=== PATIENT | male | born 1970 | race Caucasian/White ===

== ENCOUNTER → 2021-03-25 09:34 | Outpatient (CLI) | payer BC, SELFPAY ==
[2021-03-26 10:47] LABS: Covid-19 Nasal PCR Sendout Lex POSITIVE
== END ==
PROVIDERS: Visit Provider Nurse Practitioner
DX: U07.1 COVID-19 (principal)
CPT/HCPCS: C9803; U0004; U0005

== ENCOUNTER → 2022-02-12 12:33 | Outpatient (CLI) | payer BC, SELFPAY ==
--- NOTE | 2022-02-12 12:39 | XR_ITS ---
FINAL REPORT CLINICAL HISTORY: NECK PAIN FINDINGS: CERVICAL SPINE Five views were obtained. There is no acute fracture. There is no malalignment. There is kyphosis centered at C5-6. There are mild to moderate degenerative changes with osteophytes in the mid and lower cervical spine. There is mild bilateral C5-6 neural foraminal narrowing. There is no soft tissue abnormality. IMPRESSION: [id number] degenerative change with mild bilateral C5-6 neural foraminal narrowing. Kyphosis centered at C5-6. Reviewed, Interpreted and Dictated by Alfred Ta III, MD Transcribed by Sandra Owens Authenticated and [facility]
--- NOTE | 2022-02-12 12:40 | XR_ITS ---
FINAL REPORT CLINICAL HISTORY: CRISTOPHER EAR PAIN FINDINGS: SINUSES 3 views were obtained. There is no significant mucosal thickening. There are no fluid levels identified. There is no acute fracture. IMPRESSION: No acute process. Reviewed, Interpreted and Dictated by Alfred Ta III, MD Transcribed by Sekou Wilks Authenticated and [facility]
== END ==
PROVIDERS: PCP Family Medicine; Visit Provider Family Medicine
DX: M54.2 Cervicalgia (principal); H92.02 Otalgia, left ear; H92.01 Otalgia, right ear
CPT/HCPCS: 70220; 72050

== ENCOUNTER → 2022-03-26 14:55 | Outpatient (CLI) | payer BC, SELFPAY ==
--- NOTE | 2022-03-26 14:58 | MR_ITS ---
FINAL REPORT TECHNIQUE: Multiplanar MR without gadolinium enhancement CLINICAL HISTORY: CERVICAL RADICULPATHY neck popped with every movement 4-5 months ago about 2 months ago pt was streching at work and when going back to normal position he got numbness down arms, neck is stiff and it goes into head FINDINGS: Limited images of the posterior fossa are unremarkable. There is moderate spondylosis. There is reversal of the normal cervical lordosis. Alignment is otherwise normal. Cervical spinal cord shows normal signal and contour. C2-3: Unremarkable. C3-4: Mild annular disc bulge. C4-5: Mild annular disc bulge with mild spondylosis and mild bilateral neural foraminal narrowing. C5-6: Moderate spondylosis with moderate annular disc bulge. There is mild central canal stenosis with flattening of the cervical spinal cord. There is moderate bilateral neural foraminal narrowing. C6-7: Mild to moderate annular disc bulge with moderate right neural foraminal narrowing. C7-T1: Minimal annular disc bulge. IMPRESSION: Degenerative changes with canal stenosis most pronounced at C5-6. Reviewed, Interpreted and Dictated by Kelsy Rodriguez MD Transcribed by Rola Samuel Authenticated and [facility]
== END ==
PROVIDERS: PCP Family Medicine; Visit Provider Nurse Practitioner
DX: M54.12 Radiculopathy, cervical region (principal)
CPT/HCPCS: 72141; 76376

== ENCOUNTER 2023-02-03 11:16 | Emergency (ER) | payer BC, SELFPAY ==
[2023-02-03] VITALS (8 sets, daily range): BP systolic 124–164; BP diastolic 74–109; PULSE 61–73; RESP 18; TEMP 36.6; O2SAT 96–99; BMI 33.2
--- NOTE | 2023-02-03 11:26 | PC.NURSE ---
DR FIGUEROA AT BEDSIDE
--- NOTE | 2023-02-03 11:30 | CT_ITS ---
FINAL REPORT TECHNIQUE: After the administration of intravenous contrast, axial images were obtained through the abdomen and pelvis by computed tomography. The study was performed with techniques to keep radiation dose as low as reasonably achievable, (ALARA). Individual dose reduction techniques using automated exposure control or adjustment of mA and/or kV according to the patient's size were employed. CLINICAL HISTORY: ruq pain, jaundice FINDINGS: Abdomen: The lung bases are clear. There is mild fatty infiltration of the liver. The gallbladder is present. There are calcified granulomas of the spleen. The pancreas appears unremarkable. There is a nodule in the right adrenal gland measuring 1.5 cm, indeterminate. The kidneys are unremarkable. The aorta is normal in caliber. There is no free fluid or adenopathy. Pelvis: The appendix appears unremarkable. The urinary bladder is incompletely distended.. There is no free fluid or adenopathy. IMPRESSION: Indeterminate right adrenal nodule. Recommend adrenal mass protocol CT or follow-up CT in 6 months. Reviewed, Interpreted and Dictated by Dev Garces MD Transcribed by Linette Bass Authenticated and [facility]
--- NOTE | 2023-02-03 11:31 | HMH.EDGENADL ---
Discharge Plan Disposition Patient Disposition: Xfer Short-Term Hosp Chief Complaint: Abdominal Pain Prescriptions Prescriptions: No Action lisinopril-hydrochlorothiazide 10-12.5 mg tablet 1 tab PO 30 Days omeprazole 20 mg capsule,delayed release(DR/EC) 20 mg PO 30 Days Referrals Follow up/Referrals: Vickie Hua APRN [Primary Care Provider] - See instructions Activity Restrictions/Add. Instructions Additional Instructions/Restrictions: Please present immediately to [facility] for admission for continued evaluation. Clinical Impressions Clinical Impression: Direct hyperbilirubinemia, Abdominal pain, Bile duct obstruction Stand Alone Forms Stand Alone Forms: Transfer Record - ED Instructions Patient Instructions: DI for Acute Abdominal Pain Discharge ED Provider: Manpreet Lombardi General Adult HPI General Chief complaint: Abdominal Pain Stated complaint: upper right stomach pain Time Seen by Provider: 02/03/23 11:24 Mode of Arrival: Ambulatory Limitations: No Limitations Description of Symptoms (Recalled from ER Triage Doc. by RN): PT REPORTS RIGHT SIDED ABDOMINAL DISCOMFORT AFTER EATING A LARGE MEAL THURSDAY NIGHT. NAUSEA AND DIARRHEA History of Present Illness HPI narrative: Patient is a 52-year-old male with past medical history of hypertension who presents emergency department for evaluation of right-sided abdominal discomfort. Onset was acute, occurring since Thursday night, there is associated nausea and nonbloody diarrhea. No vomiting. Right upper quadrant discomfort persisted so he presented here for continued evaluation. Over the course his urine has turned dark without associated dysuria. No other acute complaints at this time. No history of abdominal surgeries. Related Data Home Medications Medication Instructions Recorded Confirmed lisinopril 10 1 tab PO 30 days 04/22/18 04/22/18 mg-hydrochlorothiazide 12.5 mg tablet omeprazole 20 mg capsule,delayed 20 mg PO 30 days 04/22/18 04/22/18 release Allergies Allergy/AdvReac Type Severity Reaction Status Date / Time No Known Drug Allergies Allergy Unknown Verified 04/22/18 10:54 [NKDA] [facility] Disclaimer: The information contained in this section may have been updated after the patient was seen, as this information can be updated by other users. Social History Smoking Status: Never smoker alcohol intake: current current occupational status: employed Travel in the last 8 weeks: None household members: family housing: house ROS Obtained: Yes Systems reviewed as appropriate & no additional complaints except as documented Physical Exam General General appearance: alert and in no apparent distress Head Head exam: atraumatic and normocephalic Eye Eye exam: Present PERRL, EOMI and scleral icterus ENT ENT exam: Present mucous membranes moist Neck Neck exam: Present normal inspection Chest Chest inspection: Present normal inspection and symmetric chest wall rise Respiratory Respiratory exam: Present normal lung sounds bilaterally; Absent respiratory distress Cardiovascular Cardiovascular exam: Present regular rate and normal rhythm Abdominal Exam Abdominal exam: Present soft and tenderness (Mild, right upper quadrant); Absent rebound or rigidity Extremities Exam Extremities exam: Present normal inspection Neurological Exam Neurological exam: Present alert Psychiatric Psychiatric exam: Present normal affect Skin Skin exam: Present warm and dry Medical Decision Making Rufino Inquiry Pt receiving controlled substance: No Vital Signs: 02/03/23 11:20 02/03/23 12:30 02/03/23 13:31 Temperature 97.8 F Temperature Source Oral Pulse Rate 67 68 Pulse Rate [Radial] 72 Respiratory Rate 18 Blood Pressure 124/89 164/91 H Blood Pressure [Right Arm] 158/98 H Blood Pressure Mean Blood Pressure Mean [Right Arm] 118 Blood Pressure Source [Right Arm] Automatic
[2023-02-03 11:36] LABS: Microscopic, Urine URINE MICROSCOPIC (MICROSCOPIC)
[2023-02-03 11:37] LABS: Basophils % 0.3 % (0.1-2.0); Eosinophils # 0.2 K/mm3 (0.0-0.4); Eosinophils % 1.7 % (0.1-12.0); Hematocrit 48.1 % (42.0-52.0); Hemoglobin 17.2 g/dL (14.1-18.0); Lymphocytes # 0.9 K/mm3 (0.7-4.5); Lymphocytes % 10.4 % (10-50); Mean Corpuscular HGB Conc 35.8 g/dL (31.8-35.4); Mean Corpuscular Volume 92.1 fl (80-94); Mean Platelet Volume 6.9 fl (7.4-10.4); Monocytes # 0.4 K/mm3 (0.1-1.0); Neutrophils # 7.2 K/mm3 (1.8-7.8); Neutrophils % 83.6 % (37.0-80.0); Platelet Count 307 K/mm3 (142-424); Red Blood Count 5.23 M/mm3 (4.60-6.20); Red Cell Distribution Width 13.3 % (11.5-17.5); White Blood Count 8.6 K/mm3 (4.8-10.8)
[2023-02-03 11:38] LABS: Appearance,Urine CLEAR (Clear); Blood, Urine TRACE-I (Negative); Color,Urine YELLOW (Yellow); Glucose,Urine (UA) Negative (Negative); Ketones,Urine Negative (Negative); Leukocyte Esterase,Urine Negative (Negative); Nitrate,Urine Negative (Negative); PH,Urine 6.5 (5.0-8.5); Protein,Urine Negative (Negative); Specific Gravity, Urine <= 1.005 (1.005-1.030); Urobilinogen,Urine 0.2 EU/dl (0.2)
[2023-02-03 11:42] LABS: Alanine Aminotransferase 630 U/L (12-78); Albumin Level 4.7 g/dl (3.5-5.0); Albumin/Globulin Ratio 1.2 (1.1-1.8); Alkaline Phosphatase 233 U/L (38-126); Anion Gap 12.4 mEq/L (5-15); Aspartate Amino Transferase 305 U/L (17-59); Bilirubin,Direct 6.2 mg/dl (0.0-0.4); Bilirubin,Total 9.1 mg/dl (0.2-1.3); Blood Urea Nitrogen 14 mg/dl (9-20); Calcium 9.2 mg/dl (8.4-10.2); Carbon Dioxide 30 mmol/L (22.0-30.0); Chloride 95 mmol/L (98-107); Creatinine Clearance Estimated 109 mL/min (50-200); Estimated Glomerular Filt Rate 63 ml/min (>60); GFR (African American) 77 ML/MIN (>60); Globulin 3.8 g/dL (1.3-3.2); Glucose 124 mg/dl (74-100); Lipase 124 U/L (23-300); Potassium 3.4 mmoL/L (3.5-5.1); Sodium 134 mmol/L (136-145); Total Protein,Serum 8.5 g/dl (6.3-8.2)
[2023-02-03 11:44] LABS: Bilirubin,Urine 2+ (Negative)
--- NOTE | 2023-02-03 11:45 | ECG_ITS ---
APPROVED REPORT Exam: Resting ECG HR:69 bpm ECG Measurements Heart Rate 69 AXES OK 184 P 31 QRSd 117 QRS 246 QT 399 T 49 QTc 418 Conclusion SINUS RHYTHM INCOMPLETE RIGHT BUNDLE BRANCH BLOCK [90+ ms QRS DURATION, TERMINAL R IN V1/V2, 40+ ms S IN I/aVL/V4/V5/V6] RIGHT VENTRICULAR HYPERTROPHY [SOME/ALL OF: PROMINENT R IN V1, LATE TRANSITION, RAD, ASHLEY, SSS] ANTEROSEPTAL MYOCARDIAL INFARCTION , OF INDETERMINATE AGE [40+ ms Q WAVE IN V1-V4] ABNORMAL ECG UNCONFIRMED REPORT Electronically signed by : Kofi Rucker MD 02/04/2023 18:40:49
--- NOTE | 2023-02-03 11:47 | PC.NURSE ---
pt resting in bed no needs at this time call light at bs
[2023-02-03 11:49] LABS: Bacteria,Urine Trace /lpf; RBC,Urine Occasional #/hpf (0-3); Squamous Epithelial Cell,Urine Occasional #/hpf (0-5)
--- NOTE | 2023-02-03 11:55 | PC.NURSE ---
PT TO CT
--- NOTE | 2023-02-03 12:05 | PC.NURSE ---
pt to ct
--- NOTE | 2023-02-03 12:05 | PC.NURSE ---
PT RETURNED FROM CT
--- NOTE | 2023-02-03 13:48 | PC.NURSE ---
DR FIGUEROA AT BEDSIDE TO UPDATE PT AND FAMILY
--- NOTE | 2023-02-03 14:23 | PC.NURSE ---
calling [facility] for possible transfer
--- NOTE | 2023-02-03 14:31 | PC.NURSE ---
PT AND FAMILY UPDATED ON POC AT THIS TIME
--- NOTE | 2023-02-03 14:34 | PC.NURSE ---
Calling [facility] at this time for possible transfer
--- NOTE | 2023-02-03 14:50 | PC.NURSE ---
Faxsheet faxed to [facility] for acceptance
--- NOTE | 2023-02-03 15:37 | PC.NURSE ---
Addendum entered by Tammie Marcelo RN 02/03/23 15:40: PT TO [facility], NOT [facility] Original Note: REPORT CALLED TO GALINDO BRADSHAW ON 2G AT [facility]
== END 2023-02-03 15:51 | disposition short-term general hospital (02) ==
PROVIDERS: Emergency Provider Emergency Medicine; PCP Nurse Practitioner
DX: K83.1 Obstruction of bile duct (principal); E80.6 Other disorders of bilirubin metabolism; R10.11 Right upper quadrant pain; R11.0 Nausea; R19.7 Diarrhea, unspecified; I45.19 Other right bundle-branch block
CPT/HCPCS: 74177; 80053; 81001; 82248; 83690; 85025; 93005; 96374; 96375; 99285; J0131; J2405; J2543; Q9967

== ENCOUNTER 2024-09-26 14:06 | Outpatient (CLI) | payer BC, SELFPAY ==
--- OUTSIDE RECORDS SUMMARY | 2024-09-26 14:22 | XMS_ITS | Clinical Summary ---
[facility] Address [address] [place] [address] Care Team Providers Care Shear Setter Name Role Phone Dory Hua APRN Primary Care Provider [phone] Allergies No known active allergies Medications pantoprazole (PROTONIX) 40 MG EC tablet Take 1 tablet by mouth Daily. Active losartan-hydroch lorothiazide (HYZAAR) 100-25 MG per tablet Take 1 tablet by mouth Daily. Active dicyclomine (BENTYL) 20 MG tablet Take 1 tablet by mouth Every 6 (Six) Hours. Active Active Problems Problem Noted Date Diagnosed Date Hypertension 02/03/2023 Resolved Problems Problem Noted Date Diagnosed Date Resolved Date Elevated LFTs 02/03/2023 02/07/2023 Choledocholithiasis 02/03/2023 02/08/20 Family History Medical History Relation Name Comments Heart disease Father Cancer Mother Relation Name Status Comments Father Mother Social History Tobacco Use Types Packs/Day Years Used Date Smoking Tobacco: Never Passive Smoke Exposure: Never Smokeless Tobacco: Never Alcohol Use Standard Drinks/Week Comments Yes 0 (1 standard drink = 0.6 oz pur e alcohol) twice a year AUDIT-C Answer Date Recorded Q1: How often do you have a drink containing alcohol? Never 02/03/2023 Q2: How many drinks containi ng alcohol do you have on a typical day when you are drinking? Patient does not drink Q3: How often do you have si x or more drinks on one occasion? Never 02/03/2023 Abuse Screen Answer Date Recorded Feels Unsafe at Home or Work/School no 02/03/2023 Feels Threatened by Someone no 01/16 Does Anyone Try to Keep You From Having Contact with Others or Doing Things Outside Your Home? no 02/03/2023 Physical Signs of Abuse Present no 02/03/2023 Housing Stability Answer Date Recorded Current Living Arrangements home 01/16 Potentially Unsafe Housing Conditions Not on zuly e 02/03/2023 Family and Community Support Answer Paul e Recorded Help with Day-to-Day Activities Not on file 02/03/2023 Lonely or Isolated Not on file 02/03/2023 Employment Answer Date Recorded Do you want help finding or keeping work or a renea b? Not on file 02/03/2023 Disabilities Answer Date Recorded Difficulty Concentrating, Remembering or Making Decisions no 02/03/2023 Difficulty Managing Errands Independently no 02/03/2023 Education Answer Date Recorded Help with school or training? Not on file Preferred Language Portuguese 02/04/2023 Sex and Gender Information Value Date Recorded Sex Assigned at Not on file Legal Sex Male 3:10 PM EST Gender Identity Not on file Sexual Orientation Not on file Last Filed Vital Signs Vital Sign Reading Time Taken Comments Blood Pressure 146/90 02/07/2023 11:19 AM EST Pulse 87 02/07/2023 12:00 PM EST Temperature 37 C (98.6 F) 02/07/2023 11:19 AM EST Respiratory Rate 18 02/07/2023 11:19 AM EST Oxygen Saturation 96% 02/07/2023 7:32 AM EST Inhaled Oxygen Concentration - - Weight 108 kg (238 lb 1.6 oz) 02/06/2023 2:38 PM EST Height 180.3 cm (5' 10.98 ) 02/06/2023 2:[address] Body Mass Index 33.22 02/06/2023 2:38 PM EST Plan of Treatment Health Maintenance Due Date Last Done Comments ANNUAL PHYSICAL 1970 HEPATITIS C SCREENING 1969 TDAP/TD VACCINES (1 - Tdap) 1988 COLOGUARD 2014 COLON CANCER SCREENING 5 YEAR SIGMOIDOSCOPY 2014 COLONOSCOPY [address] CANCER SCREENING [address] CT COLONOGRAPHY 2014 FECAL OCCULT BLOOD TEST 2014 FIT Testing (1 year) 2014 Pneumococcal Vaccine 50+ (1 of 1 - PCV) 07/24/2019 ZOSTER VACCINE (1 of 2) 07/24/2019 COVID-19 Vaccine (2 - season) 2023 INFLUENZA VACCINE 11/16/2024 Medical Devices Implanted Type Area Medical Technical Writer Device Identifier Shelf Expiration Date Model / Serial / Lot Clipapplr M/ Endo Ligaclip Rot 10mm /Tanner - [id number] Implanted:Qty : 1 on 02/06/2023 by Luis Easton MD at [facility] Implant N/A: Abdomen [employer] J [id number] 12/17/2027 [id number] / / [id number] Insurance Advance Directives * CPR (Attempt to Resuscitate) (Latest Code Status on File) Date Activated Date Inactivated Comments 02/03/2023 8:01 PM 02/07/2023 3:13 PM Question Answer Comments Code Status (Patient has no pulse and is not breathing): CPR (Attempt to Resuscitate) Medical Interventions (Patie nt has pulse or is breathing): Full Support Level Of Support Discussed With: Patient Care Teams Shear Setter Relationship Specialty Start Date End Date Dory Hua APRN PCP - General Emergency Medicine 02/03/23
[2024-09-26 15:03] LABS: Hematocrit 46.1 % (42.0-52.0); Hemoglobin 16.0 g/dL (14.1-18.0); Immature Granulocytes % 0.5 %; Mean Corpuscular HGB Conc 34.7 g/dL (31.8-35.4); Mean Corpuscular Hemoglobin 31.4 pg (27.0-31.2); Mean Corpuscular Volume 90.4 fl (80-94); Nucleated Red Blood Cells % 0 %; Platelet Count 278 K/mm3 (142-424); Red Blood Count 5.10 M/mm3 (4.60-6.20); Red Cell Distribution Width-SD 41.0 fL; White Blood Count 8.0 K/mm3 (4.8-10.8)
[2024-09-26 15:41] LABS: Alanine Aminotransferase 57 U/L (12-78); Albumin Level 4.6 g/dl (3.5-5.0); Alkaline Phosphatase 93 U/L (38-126); Anion Gap 11.8 mEq/L (5-15); Aspartate Amino Transferase 43 U/L (17-59); Bilirubin,Direct 0.1 mg/dl (0.0-0.4); Bilirubin,Indirect 1.1 mg/dL (0.0-0.9); Bilirubin,Total 1.2 mg/dl (0.2-1.3); Bilirubin,Unconjugated 1.0 mg/dL (0.0-1.1); Blood Urea Nitrogen 16 mg/dl (9-20); Calcium 9.9 mg/dl (8.4-10.2); Carbon Dioxide 31 mmol/L (22.0-30.0); Chloride 101 mmol/L (98-107); Cholesterol 181 mg/dl (140-200); Creatinine,Serum 1.00 mg/dl (0.66-1.25); Estimated Glomerular Filt Rate 78 ml/min (>60); GFR (African American) 94 ML/MIN (>60); Glucose 94 mg/dl (74-100); HDL Cholesterol 31 mg/dl (40-60); Magnesium 1.9 mg/dl (1.6-2.3); Potassium 3.8 mmoL/L (3.5-5.1); Sodium 140 mmol/L (136-145); Total Protein,Serum 6.8 g/dl (6.3-8.2); Triglycerides 250 mg/dl (30-150)
[2024-09-26 15:55] LABS: Free T4 (Free Thyroxine) 1.09 ng/dl (0.78-2.19)
[2024-09-26 16:12] LABS: Thyroid Stimulating Hormone 2.98 uIU/mL (0.465-4.68)
== END 2024-09-26 23:59 | disposition home or self-care (01) ==
LOC: LAB 14:07
PROVIDERS: PCP Family Medicine; Visit Provider Nurse Practitioner
DX: R94.31 Abnormal electrocardiogram [ECG] [EKG] (principal); I10 Essential (primary) hypertension; Z82.49 Family history of ischemic heart disease and other diseases of the circulatory system
CPT/HCPCS: 36415; 80048; 80061; 80076; 83735; 84439; 84443; 85025

== ENCOUNTER 2024-10-13 12:05 | Outpatient (CLI) | payer BC, SELFPAY ==
--- NOTE | 2024-10-13 | CA_ITS ---
APPROVED REPORT Exam: Nuclear Stress Test Indication: htn, fm hx, c.p. Patient Location: Outpatient Stress Tech: Lorraine Miller [place] Tech:Tammie NNAMDI Babin RT(R)(N) Ht: 5 ft 11 in Wt: 240 lbs HR: 81 bpm BP: 159/89 mmHg BSA: 2.28 m2 BMI: 33.4 History: htn, fm hx, c.p. Procedure: Patient exercised on Sina protocol 6:55 minutes and sec, resting heart rate 89 bpm, resting blood pressure 171/105 mmHg, with exercise maximum heart rate achived was 160 bpm which is 96 % of the maximum predicted heart rate and blood pressure was 203/89 mmHg. Test was stopped due to fatigue. Patient denied any complaint of chest pain. Patient has exercise capacity, achieved 8.6 METs of workload on treadmill, the blood pressure response to exercise was . Cardiac Stress and Resting SPECT Images: Cardiac Stress and Resting SPECT images were obtained using technetium 99m Myoview 32.9 mCi stress and 10.71 mCi at rest. Conclusion: During sina protocol pt experinced no symptoms. PVC noted. Less than .5mm upsloping ST segment changes. DTS=6. Test stopped due to target HR achieved. Electronically signed by : Mallory Payan MD 10/14/2024 00:47:25
--- OUTSIDE RECORDS SUMMARY | 2024-10-13 12:07 | XMS_ITS | Clinical Summary ---
[facility] Organization [facility] Address [address] [place] [address] Care Team Providers Care Social Media Designer Name Role Phone Dory Hua APRN Primary Care Provider [phone] [phone] Allergies No known active allergies Medications pantoprazole [...] or training? Not on file Preferred Language Citizen Of [place] 02/04/2023 Sex and Gender Information Value Date [...] VACCINE 11/16/2024 Medical Devices Implanted Type Area Option Trader Device Identifier Shelf Expiration Date Model / Serial / Lot Clipapplr M/ Endo Ligaclip Rot 10mm /Tanner - [id number] Implanted:Qty : 1 on 02/06/2023 by Luis Easton MD at [facility] Implant N/A: Abdomen [employer] J [employer] J [id number] 12/17/2027 [id number] / / [id number] Insurance Advance [...] Of Support Discussed With: Patient Care Teams Social Media Designer Relationship Specialty Start Date End Date Dory Hua APRN PCP - General Emergency Medicine 02/03/23
--- NOTE | 2024-10-13 12:30 | NM_ITS ---
APPROVED REPORT Exam: Nuclear Stress Test Indication: htn, fm hx, c.p. Patient Location: Outpatient Stress Tech: Lorraine CHE Tech:Tammie BabinNNAMDI RT(R)(N) Ht: 5 ft 11 in Wt: 240 lbs HR: 89 bpm BP: 171/105 mmHg BSA: 2.28 m2 TID: 0.96 BMI: 33.4 History: htn, fm hx, c.p. Procedure: Patient exercised on Sina protocol 6:55 minutes and sec, resting heart rate 89 bpm, resting blood pressure 171/105 mmHg, with exercise maximum heart rate achived was 160 bpm which is 96 % of the maximum predicted heart rate and blood pressure was 203/89 mmHg. Test was stopped due to fatigue. Patient denied any complaint of chest pain. Patient has Average exercise capacity, achieved 8.6 METs of workload on treadmill, the blood pressure response to exercise was Exaggerated. Cardiac Stress and Resting SPECT Images: Cardiac Stress and Resting SPECT images were obtained using technetium 99m Myoview 32.9 mCi stress and 10.71 mCi at rest. Resting and stress imaging in supine and prone positions demonstrate no evidence of fixed or reversible perfusion defects. Gated imaging demonstrates normal global and regional LV systolic function. LVEF estimated at 73%. Conclusion: No evidence of fixed or reversible perfusion defects. Gated imaging demonstrates normal global and regional LV systolic function. LVEF estimated at 73%. Of note the patient had an exaggerated BP response to exercise. Further BP control is recommended. Electronically signed by : Mallory Payan MD 10/14/2024 00:44:48
[2024-10-13] MEDS: ISOTOPE MYOVIEW (PER STUDY) 1 DOSE IV (14:15)
[2024-10-13] MEDS: SODIUM CHLORIDE 0.9% 10ML SYR (RAD ONLY) 10 ML IV ×2 (14:15)
--- NOTE | 2024-10-13 14:30 | CA_ITS ---
APPROVED REPORT EXAM: Comprehensive 2D, Doppler, and color-flow Echocardiogram Catering Truck Driver: ROBYN Freed, RVS Ht: 5 ft 11 in Wt: 245lbs BSA: 2.30 BP: 181/116 mmHg Indications: CP, HTN. Abn EKG 2D Dimensions Left Atrium 3.08 cm M: 3.0 - 4.0 M-Mode Dimensions RVDd 2.88 cm (0.9-2.6) LA Diam 3.88 cm (1.9-4.0) LVDd 5.66 cm (3.5-5.7) LVDs 3.53 cm (3.5-5.7) IVSd 1.33 cm (0.6-1.1) PWd 0.91 cm (0.6-1.1) EF (Teich) 67.00% EPSs 0.38 cm FS 37.60% EDV (Teich) 157.50 mL TAPSE 2.09 (<1.7) ESV (Teich) 51.90 mL LV Diastology E Decel Time 197 (160-240 msec) E/A Ratio 0.74 MED A' 14.00 cm/s LAT A' 13.70 cm/s Aortic Valve AIDAN Index 1.99 cm2/m2 AoV Peak Chris. 115.0 (50-130 cm/s) AO Peak GR. 5.30 mmHg AO Mean GR. 2.70 (<5 mmHg) AO VTI 17.3 (18-25 cm) AIDAN (VTI) 4.67 (2.5-4.5 cm2) Mitral Valve MV A Velocity 96.0 (40-130 cm/s) E/A Ratio 0.74 Tricuspid Valve TR P. Velocity 237.00 cm/s Left Ventricle The left ventricle is normal size. Left ventricular systolic function is normal. The left ventricular ejection fraction is within the normal range. There is increased left ventricular wall thickness. There is normal LV segmental wall motion. Transmitral Doppler flow pattern suggests impaired LV relaxation. LVEF is 60%. Right Ventricle The right ventricle is normal size. The right ventricular systolic function is normal. Atria The left atrium size is normal. The right atrium size is normal. There is no color Doppler evidence of interatrial shunt. Aortic Valve The aortic valve opens well. There is no hemodynamically significant aortic valvular stenosis. No aortic regurgitation is present. Mitral Valve The mitral valve is normal in structure. No evidence of mitral valve stenosis. Trace mitral regurgitation is present. Tricuspid Valve The tricuspid valve leaflets are thin and pliable. Mild tricuspid regurgitation. RVSP is 20-25 mmHg. Pulmonic Valve The pulmonary valve is grossly normal in structure. Trace pulmonic valve regurgitation is present. Great Vessels The aortic root is normal in size. IVC is normal in size and collapses >50% with inspiration. Pericardium There is no pericardial effusion. Other Information Study Quality: Fair Conclusion Normal biventricular systolic function. Mild TR. Electronically signed by : Mallory Payan MD 10/15/2024 16:27:39
== END 2024-10-13 23:59 | disposition home or self-care (01) ==
LOC: RAD 12:06
PROVIDERS: PCP Family Medicine; Visit Provider Nurse Practitioner
DX: I07.1 Rheumatic tricuspid insufficiency (principal); I49.3 Ventricular premature depolarization; I10 Essential (primary) hypertension; R94.31 Abnormal electrocardiogram [ECG] [EKG]; Z82.49 Family history of ischemic heart disease and other diseases of the circulatory system
CPT/HCPCS: 78452; 93017; 93018; 93306; A9502

== ENCOUNTER → 2025-02-13 06:14 | Outpatient (CLI) | payer BC, SELFPAY ==
--- OUTSIDE RECORDS SUMMARY | 2025-02-13 06:17 | XMS_ITS | Clinical Summary ---
[facility] Address [address] [place] [address] Care Team Providers Care Associate Software Engineer Name Role Phone Dory Hua APRN Primary Care Provider [phone] [phone] Allergies No known active allergies Medications pantoprazole [...] or training? Not on file Preferred Language Grenadian 02/04/2023 Sex and Gender Information Value Date [...] 07/24/2019 ZOSTER VACCINE (1 of 2) 07/24/2019 INFLUENZA VACCINE 09/16/2024 Medical Devices Implanted Type Area Rn Lvn Device Identifier Shelf Expiration Date Model / Serial / Lot Clipapplr M/ Endo Ligaclip Rot 10mm /Tanner - [id number] Implanted:Qty : 1 on 02/06/2023 by Luis Easton MD at [facility] Implant N/A: Abdomen [employer] J [id number] 12/17/2027 [id number] / / [id number] Insurance [facility] BLUE SHIELD PPO Advance Directives * CPR (Attempt to Resuscitate) (Latest Code Status on File) Date Activated Date Inactivated Comments 02/03/2023 8:01 PM 02/07/2023 3:13 PM Question Answer Comments Code Status (Patient has no pulse and is not breathing): CPR (Attempt to Resuscitate) Medical Interventions (Patie nt has pulse or is breathing): Full Support Level Of Support Discussed With: Patient Care Teams Associate Software Engineer Relationship Specialty Start Date End Date Dory Hua APRN PCP - General Emergency Medicine 02/03/23
== END ==
LOC: SL 06:15
PROVIDERS: PCP Family Medicine; Visit Provider Nurse Practitioner
DX: G47.33 Obstructive sleep apnea (adult) (pediatric) (principal)
CPT/HCPCS: G0399